=== PATIENT | male | born 1970 | race Caucasian/White ===

== ENCOUNTER 2017-07-23 14:59 | Emergency (ER) | payer BC, OTHER ==
[2017-07-23 18:11] VITALS: BP 120/79
--- NOTE | 2017-07-23 19:04 | UC ---
Respiratory Complaint HPI - HPI Summary HPI Summary: 46 yo WM c/o cough with yellowish sputum associated with congestion, f/c and bodyaches, worsening - History of Current Complaint Chief Complaint: UCRespiratory Stated Complaint: COUGH Time Seen by Provider: 07/23/17 18:30 Hx Obtained From: Patient Onset/Duration: Lasting Days Timing: Constant Severity Initially: Moderate Pain Intensity: 0 - Allergies/Home Medications Allergies/Adverse Reactions: Allergies Allergy/AdvReac Type Severity Reaction Status Date / Time IV CONTRAST Allergy Mild Rash And Uncoded 07/23/17 15:40 Itching PMH/Surg Hx/FS Hx/Imm Hx Previously Healthy: Yes - Surgical History Surgical History: Yes Surgery Procedure, Year, and Place: tumor removal - Family History Known Family History: Positive: Diabetes Negative: Cardiac Disease, Hypertension - Social History Alcohol Use: Occasionally Substance Use Type: None Smoking Status (MU): Former Smoker Review of Systems Constitutional: Fever, Chills Skin: Negative Eyes: Negative ENT: Negative Respiratory: Cough Cardiovascular: Negative Gastrointestinal: Negative Genitourinary: Negative Motor: Negative Neurovascular: Negative Musculoskeletal: Myalgia Neurological: Negative Psychological: Negative Is Patient Immunocompromised?: No All Other Systems Reviewed And Are Negative: Yes Physical Exam Triage Information Reviewed: Yes Vital Signs: Initial Vital Signs Temp 36.8 C 07/23/17 15:36 Pulse 86 07/23/17 15:36 Resp 18 07/23/17 15:36 BP 114/79 07/23/17 15:36 Pulse Ox 98 07/23/17 15:36 Eye Exam: Normal ENT Exam: Normal Dental Exam: Normal Neck exam: Normal Neck: Positive: 1 Respiratory: Positive: Rhonchi - with cough Cardiovascular Exam: Normal Abdominal Exam: Normal Musculoskeletal Exam: Normal Neurological Exam: Normal Psychological Exam: Normal Skin Exam: Normal Diagnostic Evaluation - Laboratory O2 Sat by Pulse Oximetry: 99 Respiratory Course/Dx - Course Course Of Treatment: pt prescribed abx but asked to wait to take abx for 3 days or until sx worsen. Pt may have viral bronchitis but will have abx on board and will take it ifsymptoms worsen given worsening progression rather quickly - Differential Dx/Diagnosis Provider Diagnoses: Acute bronchitis Discharge - Discharge Plan Condition: Stable Disposition: HOME Prescriptions: Azithromycin TAB* [Zithromax TAB (Z-JESS) 250 mg #6 tabs] 2 tab PO .TODAY, THEN 1 DAILY #1 jess guaiFENesin [Guaifenesin ER] 600 mg PO BID 5 Days #10 tab.er.12h Patient Education Materials: Acute Bronchitis (ED) Referrals: Mateo Johnson MD [Primary Care Provider] - Additional Instructions: as tolerated, Please wait to take antibiotics for 3 days or if symptoms worsen
== END 2017-07-23 19:38 | disposition home or self-care (01) ==
LOC: UCEAST 14:59
DX: J20.9 Acute bronchitis, unspecified (principal); Z91.041 Radiographic dye allergy status; Z87.891 Personal history of nicotine dependence
CPT/HCPCS: 99212; G0463